=== PATIENT | female | born 1940 | race Caucasian/White ===

== ENCOUNTER 2018-05-09 08:50 | Inpatient (IN) | payer MEDICARE, OTHER ==
[2018-05-09 09:24] LABS: CHLORIDE,CL 100 mEq/L (98-106); SODIUM,NA 137 mEq/L (136-145)
[2018-05-09] MEDS ORDERED: Acetaminophen 325 MG Tab PO PRN (11:53)
[2018-05-09] MEDS ORDERED: Ondansetron 4 MG/2 ML SDV IV PRN (11:53)
[2018-05-09] MEDS ORDERED: Sodium Chloride 0.9% 10 ML Syringe FLUSH PRN (11:53)
[2018-05-09] MEDS ORDERED: Ketorolac 30 MG/ML SDV IV PRN (11:53)
[2018-05-09] MEDS ORDERED: Enoxaparin 30 MG/0.3 ML Syringe SUBCUT SCH (12:00)
[2018-05-09] MEDS ORDERED: Lactated Ringers 1,000 ML IV SCH (12:00)
[2018-05-09 12:06] VITALS: BP 140/56
[2018-05-09] MEDS ORDERED: Iopamidol 612 MG/ML 100 ML Bottle IVPUSH ONE (12:18)
[2018-05-09] MEDS ORDERED: metroNIDAZOLE/Normal Saline 500 MG in Premix Bag 1 BAG IV ONE (13:58)
[2018-05-09] MEDS: Levofloxacin/Dextrose 5%-Water 500 MG in Premix Bag 1 BAG IV ONE ×2 (14:19→14:44)
--- NOTE | 2018-05-09 15:10 | DISCH ---
CONSULTING PHYSICIAN: Dr. Porter, general surgeon, [facility] [place]. CONDITION ON DISCHARGE: Stable. FINAL DIAGNOSIS: Acute appendicitis. HISTORY OF PRESENT ILLNESS: Christel is a 78-year-old female who presented to the clinic this morning with concerns of vomiting x1 day. She had felt that any time she ate or drank anything, she would end up throwing it back up. The pain initially started across the upper aspect of her abdomen. She explained to as where her stomach lies. It had progressively moved down to the low abdomen as well today. She denied any new onset of any diarrhea, admitted to loose stools since March when she was in [place]. Initial laboratory work did show an elevated white blood count, elevated CRP, and elevated amylase. Ultrasound of the right upper quadrant was negative. We did elect to proceed and get a CT scan of the abdomen and pelvis, which actually did show appendicitis. There was an incidental finding of either a focal dilation versus a cyst at the pancreatic duct. However, again, the appendix did show some inflammatory changes as well and was retrocecal. Again, laboratory data completed prior to hospital admission did show white blood count 16,900 with 88.2% neutrophils. Total bilirubin is 1.1. CRP was 2.7 with amylase of 140. HOSPITAL COURSE: After admission to the hospital, again CT scan was done, which did show appendicitis. She was initially given 30 mg of Lovenox on admission along with 30 mg of Toradol intravenously for her discomfort. She was also given 4 mg of Zofran. After finding out that it was secondary to appendicitis, we did elect to have 500 mg of Levaquin along with 500 mg of Flagyl intravenously as well. This is currently being given at this point in time. DISCHARGE INSTRUCTIONS: We did call for ALS transfer to [facility]. Consulting physician is Dr. Porter, general surgeon who was kind enough to accept transfer for further evaluation. I did speak with Julia Clemens RN at [facility] in the Emergency Room. Report was given to her as well as the patient's current condition being stable. They will contact Dr. Porter once the patient does arrive. She will continue to be n.p.o. en route. She was given Tylenol with a couple sips of water at 12:25 secondary to a fever of 100.2. Otherwise, again, vital signs are blood pressure is 140/56, O2 of 95%, pulse 68 with respiratory rate of 16. Again, this will be an ALS transfer. DISPOSITION: ALS transfer to [facility] with General Surgery consultation. NICOLE/MARY /[id number]
== END 2018-05-09 14:50 | disposition critical access hospital (66) | DRG 440 ==
LOC: CC.MS 08:50 → CC.FCMC 08:50 → CC.MS 11:25
PROVIDERS: ADMIT Physician Assistant Medical; ATTEND Family Medicine
DX: K85.90 Acute pancreatitis without necrosis or infection, unspecified (principal); M19.90 Unspecified osteoarthritis, unspecified site; I10 Essential (primary) hypertension; E78.5 Hyperlipidemia, unspecified; M85.80 Other specified disorders of bone density and structure, unspecified site; E55.9 Vitamin D deficiency, unspecified; Z79.82 Long term (current) use of aspirin; Z79.899 Other long term (current) drug therapy; Z87.891 Personal history of nicotine dependence
CPT/HCPCS: 74178; 76705; 80053; 82150; 83690; 83735; 85025; 86140; A9270-GY; J1650; J1885; J1956; J2405; J3490; J7120; Q9967

== ENCOUNTER 2021-12-09 18:30 | Emergency (ER) | payer MEDICARE, OTHER ==
[2021-12-09 19:33] VITALS: BP 130/68; PULSE 70
== END 2021-12-09 20:58 | disposition home or self-care (01) ==
LOC: CC.ED 18:30
DX: S00.03XA Contusion of scalp, initial encounter (principal); I10 Essential (primary) hypertension; R93.89 Abnormal findings on diagnostic imaging of other specified body structures; W19.XXXA Unspecified fall, initial encounter
CPT/HCPCS: 70450; 72125; 73700-LT; 99283-25; 99284